=== PATIENT | male | born 1950 | race Caucasian/White ===

== ENCOUNTER 2017-03-18 12:40 | Outpatient (CLI) | payer MEDICARE, MEDICAID ==
[2017-03-18 17:36] LABS: EOSINOPHILS # (AUTO) 0.1 10^3/uL (0.0-0.7); HCT - HEMATOCRIT 46.1 % (42.0-52.0); HGB - HEMOGLOBIN 15.2 g/dL (14.0-18.0); LYMPHOCYTES # (AUTO) 1.4 10^3/uL (1.5-3.5); LYMPHOCYTES % (AUTO) 30.6 %; MEAN CORPUSCULAR HEMOGLOBIN 30.6 pg (27.0-31.0); MEAN CORPUSCULAR HGB CONC 32.8 g/dL (32.0-36.0); MEAN CORPUSCULAR VOLUME 93.3 fL (80.0-94.0); MONOCYTES # (AUTO) 0.4 10^3/uL (0.0-1.0); MONOCYTES % (AUTO) 9.8 %; NEUTROPHILS # (AUTO) 2.5 10^3/uL (1.5-6.6); NEUTROPHILS % (AUTO) 55.6 %; NUCLEATED RED BLOOD CELLS AUTO 0.1 /100WBC; RED BLOOD COUNT 4.95 10^6/uL (4.70-6.10); RED CELL DISTRIBUTION WIDTH 13.9 % (12.0-15.0); UNCORRECTED WHITE BLOOD COUNT 4.6 x10^3/uL; WHITE BLOOD COUNT 4.6 x10^3/uL (4.8-10.8)
[2017-03-18 20:23] LABS: ALBUMIN/GLOBULIN RATIO 1.5 (1.0-2.2); BILIRUBIN,TOTAL 0.3 mg/dL (0.2-1.0); BUN - BLOOD UREA NITROGEN 10 mg/dL (6-20); CALCIUM 8.6 mg/dL (8.5-10.3); CARBON DIOXIDE - CO2 25 mmol/L (21-32); CHLORIDE 106 mmol/L (101-111); CHOL/HDL RATIO 4.3 (<5.0); CHOLESTEROL 212 mg/dL; CREATININE 0.7 mg/dL (0.6-1.2); GFR - MDRD 113 (>89); GLUCOSE 98 mg/dL (70-100); HDL CHOLESTEROL 49 mg/dL; LDL/HDL RATIO 2.9 (<3.6); POTASSIUM 4.1 mmol/L (3.5-5.0); SODIUM 138 mmol/L (135-145); TOTAL PROTEIN 6.7 g/dL (6.7-8.2); TRIGLYCERIDES 107 mg/dL; VLDL CHOLESTEROL 21 mg/dL
[2017-03-19 09:02] LABS: TEST RESULT REPORT (())
[2017-03-22 22:01] LABS: HSV 1/2 IGM INDEX <0.90 INDEX (()); HSV 2 IGG INDEX <0.90 INDEX (())
== END 2017-03-18 12:41 | disposition home or self-care (01) ==
LOC: LAB.F 12:40
PROVIDERS: ATTEND Nurse Practitioner Family
DX: F32.9 Major depressive disorder, single episode, unspecified (principal)
CPT/HCPCS: 36415; 80050; 80061; 81599; 86592; 86694; 86695; 86696; 86803; G0475; 87389

== ENCOUNTER 2017-05-06 14:27 | Outpatient (CLI) | payer MEDICARE, MEDICAID | END 2017-05-06 14:28 | disposition home or self-care (01) | LOC: LAB.F 14:27 | PROVIDERS: ATTEND Nurse Practitioner Family | DX: Z12.5 Encounter for screening for malignant neoplasm of prostate (principal); F32.9 Major depressive disorder, single episode, unspecified; Z13.6 Encounter for screening for cardiovascular disorders | CPT/HCPCS: 36415; 87491; 87591; G0103; 84153 ==

== ENCOUNTER 2017-06-07 13:06 | Outpatient (CLI) | payer MEDICARE, MEDICAID ==
--- NOTE | 2017-06-07 18:23 | Ultrasound Report ---
ABDOMINAL ULTRASOUND: 06/07/2017 CLINICAL INDICATION: Palpable abnormality. TECHNIQUE: Real-time scanning was performed with retention representative static images obtained. FINDINGS: Ultrasound of the palpable abnormality identified by the patient in the right abdominal wa ll was performed. At this site, there is a 5.4 x 2.2 x 1.0 cm lipoma. No sonographically suspicious findings are identified. IMPRESSION: SIMPLE LIPOMA ACCOUNTING FOR THE PALPABLE ABNORMALITY. JOB #: [id number] EXT JOB #:
== END 2017-06-07 13:07 | disposition home or self-care (01) ==
LOC: DI 13:06
PROVIDERS: ATTEND Nurse Practitioner Family
DX: D17.1 Benign lipomatous neoplasm of skin and subcutaneous tissue of trunk (principal)
CPT/HCPCS: 76705

== ENCOUNTER 2017-12-05 14:17 | Observation (INO) | payer MEDICARE, MEDICAID ==
[2017-12-05 15:00] LABS: BASOPHILS # (AUTO) 0.1 10^3/uL (0.0-0.1); BASOPHILS % (AUTO) 1.5 %; EOSINOPHILS # (AUTO) 0.1 10^3/uL (0.0-0.7); EOSINOPHILS % (AUTO) 2.8 %; LYMPHOCYTES % (AUTO) 29.8 %; MEAN CORPUSCULAR HEMOGLOBIN 22.4 pg (27.0-31.0); MEAN CORPUSCULAR HGB CONC 30.3 g/dL (32.0-36.0); MEAN CORPUSCULAR VOLUME 73.9 fL (80.0-94.0); MEAN PLATELET VOLUME 7.3 fL (7.4-11.4); MONOCYTES # (AUTO) 0.4 10^3/uL (0.0-1.0); MONOCYTES % (AUTO) 12.7 %; NEUTROPHILS # (AUTO) 1.8 10^3/uL (1.5-6.6); NEUTROPHILS % (AUTO) 53.2 %; PLT - PLATELET COUNT 303 10^3/uL (130-450); RED BLOOD COUNT 2.95 10^6/uL (4.70-6.10); RED CELL DISTRIBUTION WIDTH 20.3 % (12.0-15.0); WHITE BLOOD COUNT 3.4 x10^3/uL (4.8-10.8)
[2017-12-05 15:07] LABS: HGB - HEMOGLOBIN 6.6 g/dL (14.0-18.0)
[2017-12-05 15:12] LABS: ALBUMIN/GLOBULIN RATIO 1.5 (1.0-2.2); BILIRUBIN,TOTAL 0.5 mg/dL (0.2-1.0); CALCIUM 8.7 mg/dL (8.5-10.3); CREATININE 0.8 mg/dL (0.6-1.2); TOTAL PROTEIN 6.7 g/dL (6.7-8.2)
[2017-12-05 15:23] LABS: PLATELET ESTIMATE, MANUAL NORMAL (130-450,000) (NORMAL); PLATELET MORPHOLOGY NORMAL APPEARANCE (NORMAL)
[2017-12-05] MEDS ORDERED: SODIUM CHLORIDE 0.9% 1,000 ML IV ONE (15:36)
--- NOTE | 2017-12-05 15:39 | ED Physician Documentation ---
History of Present Illness - Stated complaint Stated Complaint: R EYE VISION CHANGES - Chief complaint Chief Complaint: Cardiac - History obtained from History obtained from: Patient - History of Present Illness Timing: Yesterday Improved by: rest Worsened by: walking - Additonal information Additional information: Patient is a 67-year-old male who presents to the emergency department with vision loss in his right eye last night, this has since resolved. He also was seen last week at [facility] in [place] for rectal bleeding, found to be significantly anemic and recommended that he be admitted for blood transfusion, he declined this and left AGAINST MEDICAL ADVICE to go home. Tried treating it with vegetable shakes at home, but is still not feeling well. Feels very out of breath with walking. He had an episode of feeling like his heart was racing last week at the same time. This has not recurred. He is not on any medications for home. Last colonoscopy was 25 years ago. States has a long history of hemorrhoids and as noted, not bright red blood per rectum. Review of Systems Ten Systems: 10 systems reviewed and negative Constitutional: denies: Fever, Chills Eyes: denies: Photophobia Ears: denies: Ear pain Nose: denies: Rhinorrhea / runny nose, Congestion Cardiac: denies: Chest pain / pressure Respiratory: denies: Dyspnea, Cough GI: denies: Abdominal Pain, Nausea, Vomiting, Diarrhea : denies: Dysuria Skin: denies: Rash Musculoskeletal: denies: Neck pain, Back pain Neurologic: denies: Headache PD PAST MEDICAL HISTORY - Past Medical History Past Medical History: No - Past Surgical History Past Surgical History: No - Present Medications Home Medications: Ambulatory Orders Medication Instructions Recorded Confirmed No Known Home Medications [No 12/05/17 12/05/17 Known Home Medications] - Allergies Allergies/Adverse Reactions: Allergies Allergy/AdvReac Type Severity Reaction Status Date / Time No Known Drug Allergies Allergy Verified 12/05/17 14:28 - Social History Does the pt smoke?: No Does the pt have substance abuse?: No - Family History Family history: reports: Non contributory PD ED PE NORMAL - Vitals Vital signs reviewed: Yes - General General: Alert and oriented X 3, No acute distress, Well developed/nourished - HEENT HEENT: PERRL, EOMI, Ears normal, Moist mucous membranes, Pharynx benign, Other ( Normal funduscopic exam bilaterally) - Neck Neck: Supple, no meningeal sign - Cardiac Cardiac: RRR, Strong equal pulses - Respiratory Respiratory: No respiratory distress, Clear bilaterally - Abdomen Abdomen: Soft, Non tender, Non distended - Rectal Rectal: Pt declined - Back Back: No spinal TTP - Derm Derm: Warm and dry, No rash - Extremities Extremities: No edema - Neuro Neuro: Alert and oriented X 3, transportation broker 2-12 intact, No motor deficit, No sensory deficit, Normal speech - Psych Psych: Normal mood, Normal affect Results - Vitals Vitals: Vital Signs - 24 hr 12/05/17 14:22 Temperature 36.8 C Heart Rate 80 Respiratory 18 Rate Blood Pressure 116/59 L O2 Saturation 98 Oxygen O2 Source Room air - EKG (time done) 1528 Rate: Rate (enter#) (76) Rhythm: NSR [place]: Normal Intervals: RBBB - Labs Labs: Laboratory Tests 12/05/17 12/05/17 12/05/17 14:53 14:53 14:53 WBC 3.4 L RBC 2.95 L Hgb 6.6 L* Hct 21.8 L MCV 73.9 L MCH 22.4 L MCHC 30.3 L RDW 20.3 H Plt Count 303 MPV 7.3 L Neut # 1.8 Lymph # 1.0 L [place] # 0.4 Eos # 0.1 Baso # 0.1 Absolute Nucleated RBC 0.01 Nucleated RBC % 0.3 Platelet Estimate NORMAL (130-450,000) Platelet Morphology NORMAL APPEARANCE RBC Morph Micro Appear 3+ POIKILOCYTOSIS Sodium 135 Potassium 4.3 Chloride 104 Carbon Dioxide 23 Anion Gap 8.0 BUN 10 Creatinine 0.8 Estimated GFR (MDRD) 97 Glucose 107 H Calcium 8.7 Iron TIBC % Saturation Transferrin Ferritin Total Bilirubin 0.5 AST 16 ALT 11 Alkaline Phosphatase 44 Troponin I < 0.04 Total Protein 6.7 Albumin 4.0 Globulin 2.7 Albumin/Globulin Ratio 1.5 Lipase 15 L Vitamin B12 Folate Blood Type Blood Type Recheck Antibody Screen Crossmatch IS Only 12/05/17 12/05/17 12/05/17 14:53 14:53 14:53 WBC RBC Hgb Hct MCV MCH MCHC RDW Plt Count MPV Neut # Lymph # [place] # Eos # Baso # Absolute Nucleated RBC Nucleated RBC % Platelet Estimate Platelet Morphology RBC Morph Micro Appear Sodium Potassium Chloride Carbon Dioxide Anion Gap BUN Creatinine Estimated GFR (MDRD) Glucose Calcium Iron 7 L TIBC 591 H % Saturation 1 L Transferrin 422 H Ferritin 4.7 L Total Bilirubin AST ALT Alkaline Phosphatase Troponin I Total Protein Albumin Globulin Albumin/Globulin Ratio Lipase Vitamin B12 340 Folate 21.14 Blood Type Blood Type Recheck O POSITIVE Antibody Screen Crossmatch IS Only 12/05/17 12/05/17 15:56 15:56 WBC RBC Hgb Hct MCV MCH MCHC RDW Plt Count MPV Neut # Lymph # [place] # Eos # Baso # Absolute Nucleated RBC Nucleated RBC % Platelet Estimate Platelet Morphology RBC Morph Micro Appear Sodium Potassium Chloride Carbon Dioxide Anion Gap BUN Creatinine Estimated GFR (MDRD) Glucose Calcium Iron TIBC % Saturation Transferrin Ferritin Total Bilirubin AST ALT Alkaline Phosphatase Troponin I Total Protein Albumin Globulin Albumin/Globulin Ratio Lipase Vitamin B12 Folate Blood Type O POSITIVE Cancelled Blood Type Recheck Antibody Screen NEGATIVE Cancelled Crossmatch IS Only See Detail - Rads (name of study) head CT Radiology: Prelim report reviewed, EMP read contemporaneously, See rad report ( Normal examination for age. No acute intracranial process or demonstrated cause for the patient's symptoms. MRI of the brain and orbits without and with contrast may be useful for further assessment, as clinically indicated. ) PD MEDICAL DECISION MAKING - ED course Complexity details: reviewed results, re-evaluated patient, considered differential, d/w patient, d/w family, d/w retirement sales consultant (Dr. Frausto, Dr. Tavares.) ED course: Patient is a 67-year-old gentleman who presents to the emergency department multiple problems, the first appears to be GI bleeding, with bright red blood per rectum. This is a chronic issue for the patient. He has now become symptomatic from his anemia. Discussed the case with Dr. Tavares who will consult on the patient tomorrow. Patient is unsure if he wants a colonoscopy or not. He does accept a blood transfusion. The second issue appears to be a TIA, loss of vision to the right eye which is now resolved. No acute findings on head CT, but would likely benefit from MRI. May also need carotid Dopplers/ cardiac Echo. Will place the patient in observation with the hospitalist, discussed with Dr. Frausto who accepts. This document was made in part using voice recognition software. While efforts are made to proofread this document, sound alike and grammatical errors may occur. Departure - Departure Disposition: ED Place in Observation Clinical Impression: Symptomatic anemia TIA (transient ischemic attack) Qualifiers: Transient cerebral ischemia type: amaurosis fugax Qualified Code(s): G45.3 - Amaurosis fugax GI bleed Qualifiers: GI bleed type/associated pathology: unspecified gastrointestinal hemorrhage type Qualified Code(s): K92.2 - Gastrointestinal hemorrhage, unspecified Condition: Good Discharge Date/Time: 12/05/17 19:34 NIHSS - Time Time: 15:30 - Level of Consciousness Level of consciousness: (0) Alert, Keenly responsive LOC Questions: (0) Answers both Q's correct LOC Commands: (0) Performs both correctly - Gaze Best Gaze: (0) Normal - Visual Visual: (0) No loss - Facial Palsy Facial Palsy: (0) Normal, symmetrical movement - Motor Arms (both separate) Motor Arm (right): (0) No drift Motor Arm (left): (0) No drift - Motor Legs (both separate) Motor Leg (right): (0) No drift Motor Leg (left): (0) No drift - Limb Ataxia Limb Ataxia: (0) Absent - Sensory Sensory: (0) Normal - Best Language Best Language: (0) No aphasia - Dysarthria Dysarthria: (0) Normal - Extinction and Inattention (formally neg Extinction and inattention: (0) No abnormality - Total Score/Results Total Score/Result: 0
--- NOTE | 2017-12-05 16:27 | CT Preliminary Report ---
Exam: CT HEAD W/O IMPRESSION: Normal examination for age. No acute intracranial process are demonstrated cause for the patient's symptoms. MRI of the brain and orbits without and with contrast may be useful for further assessment, as clinic ally indicated. [facility] SITE ID: [id number]
--- NOTE | 2017-12-05 16:30 | CT Report ---
EXAM: CT HEAD WITHOUT CONTRAST EXAM DATE: 12/05/2017 04:10 PM. CLINICAL HISTORY: 67-year-old male with right eye vision loss beginning last night, worse today. COMPARISON: None. TECHNIQUE: Multiaxial CT images were obtained from the foramen magnum to the vertex. Reformats: Coron al. IV contrast: None. In accordance with CT protocol optimization, one or more of the following dose reduction techniques w ere utilized for this exam: automated exposure control, adjustment of mA and/or KV based on patient s ize, or use of iterative reconstructive technique. FINDINGS: Parenchyma: Generalized mild age-appropriate cerebral and cerebellar atrophy. No intraparenchymal hem orrhage. No evidence of mass, midline shift, or CT findings of infarction. Warren-white differentiation is distinct. Extraaxial Spaces: Normal for age. No subdural or epidural collections identified. Ventricles: Normal in size and position. Sinuses and Orbits: Paranasal sinuses unremarkable. Intraorbital global anterior calcifications, symm etrical in appearance. No soft tissue mass, foreign body, lytic or destructive process. Bones: No evidence of fracture or calvarial defect. Other: None. IMPRESSION: Normal examination for age. No acute intracranial process or demonstrated cause for the p atient's symptoms. MRI of the brain and orbits without and with contrast may be useful for further assessment, as clinic ally indicated. [facility] Referring Provider Line: [phone] SITE ID: [id number]
[2017-12-05] MEDS ORDERED: ONDANSETRON 4 MG/2 ML VIAL IVP PRN (17:50)
[2017-12-05] MEDS ORDERED: PROCHLORPERAZINE 10 MG/2 ML VIAL IVP PRN (17:50)
[2017-12-05] MEDS ORDERED: ACETAMINOPHEN 325 MG TABLET PO PRN (17:50)
[2017-12-05] MEDS ORDERED: SODIUM CHLORIDE FLUSH 0.9% 10 ML SYRINGE IVP PRN (17:50)
[2017-12-05] MEDS ORDERED: oxyCODONE 5 MG TABLET PO PRN (17:50)
[2017-12-05 18:59] LABS: % IRON SATURATION 1 % (20-50); IRON 7 ug/dL (45-182); TOTAL IRON BINDING CAPACITY 591 ug/dL (250-450); TRANSFERRIN 422 mg/dL (180-329)
[2017-12-05 19:04] LABS: FERRITIN 4.7 ng/mL (23.9-336.2)
[2017-12-05 19:07] LABS: FOLATE 21.14 ng/mL (5.90 - >24.8)
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
[2017-12-06] MEDS: SODIUM CHLORIDE FLUSH 0.9% 10 ML SYRINGE IVP SCH ×3 (01:00→17:22)
[2017-12-06] MEDS: PANTOPRAZOLE 40 MG TABLET PO SCH ×2 (06:30→17:22)
[2017-12-06] MEDS: POLYETHYLENE GLYCOL 3350 17 GM PACKET PO SCH (10:28)
[2017-12-06 12:06] LABS: BASOPHILS % (AUTO) 1.2 %; EOSINOPHILS # (AUTO) 0.1 10^3/uL (0.0-0.7); EOSINOPHILS % (AUTO) 3.4 %; HGB - HEMOGLOBIN 8.7 g/dL (14.0-18.0); LYMPHOCYTES % (AUTO) 34.2 %; MEAN CORPUSCULAR HEMOGLOBIN 24.6 pg (27.0-31.0); MEAN CORPUSCULAR VOLUME 76.6 fL (80.0-94.0); MEAN PLATELET VOLUME 7.4 fL (7.4-11.4); MONOCYTES # (AUTO) 0.4 10^3/uL (0.0-1.0); MONOCYTES % (AUTO) 14.5 %; NEUTROPHILS # (AUTO) 1.4 10^3/uL (1.5-6.6); NEUTROPHILS % (AUTO) 46.7 %; PLT - PLATELET COUNT 268 10^3/uL (130-450); RED BLOOD COUNT 3.55 10^6/uL (4.70-6.10); RED CELL DISTRIBUTION WIDTH 20.7 % (12.0-15.0); WHITE BLOOD COUNT 2.9 x10^3/uL (4.8-10.8)
--- NOTE | 2017-12-06 17:34 | Ultrasound Preliminary Report ---
Exam: US CAROTID DOPPLER COMPLETE IMPRESSION: 1. No hemodynamically significant stenoses. 2. Both vertebral arteries are antegrade in flow. Validated velocity measurements with angiographic measurements and velocity criteria are extrapolated from diameter data as defined by the Society of Radiologists in Ultrasound Consensus Conference Radi ology 2003; 229;340-346. [facility] SITE ID: [id number]
[2017-12-06] MEDS: FERROUS SULFATE 325 MG TABLET PO SCH (17:56)
--- NOTE | 2017-12-06 17:59 | Ultrasound Report ---
EXAM: CAROTID DOPPLER ULTRASOUND EXAM DATE: 12/06/2017 05:00 PM. CLINICAL HISTORY: TIA versus CVA. Right eye visual deficit. COMPARISON: None. TECHNIQUE: Real-time sonographic vascular imaging was performed by the train dispatcher through the caroti d arterial system with a linear transducer utilizing color-flow, Doppler flow and spectral analysis. Multiple site safety representative static images were saved for review. FINDINGS: No hemodynamically significant stenoses are noted. Both vertebral arteries are antegrade in flow. Right: RCCA Prox: PSV 109 cm/sec. RCCA Dist: PSV 77 cm/sec, EDV 17 cm/sec. RECA: PSV 118 cm/sec. R Bulb: PSV 31 cm/sec, EDV 11 cm/sec, ICA/CCA ratio 0.40. ANDREW Prox: PSV 66 cm/sec, EDV 26 cm/sec, ICA/CCA ratio 0.86. ANDREW Mid: PSV 81 cm/sec, EDV 30 cm/sec, ICA/CCA ratio 1.05. ANDREW Dist: PSV 59 cm/sec, EDV 20 cm/sec, ICA/CCA ratio 0.77. RVA: PSV 57 cm/sec. RVA flow direction: Antegrade. Left: LCCA Prox: PSV 107 cm/sec. LCCA Dist: PSV 90 cm/sec, EDV 27 cm/sec. LECA: PSV 107 cm/sec. L Bulb: PSV 67 cm/sec, EDV 19 cm/sec, ICA/CCA ratio 0.74. LICA Prox: PSV 78 cm/sec, EDV 29 cm/sec, ICA/CCA ratio 0.87. LICA Mid: PSV 56 cm/sec, EDV 27 cm/sec, ICA/CCA ratio 0.62. LICA Dist: PSV 85 cm/sec, EDV 29 cm/sec, ICA/CCA ratio 0.94. LVA: PSV 32 cm/sec. LVA flow direction: Antegrade. Other: None. IMPRESSION: 1. No hemodynamically significant stenoses. 2. Both vertebral arteries are antegrade in flow. Validated velocity measurements with angiographic measurements and velocity criteria are extrapolated from diameter data as defined by the Society of Radiologists in Ultrasound Consensus Conference Radi ology 2003; 229;340-346. [facility] Referring Provider Line: [phone] SITE ID: [id number]
--- NOTE | 2017-12-06 18:09 | PROVIDER PROGRESS NOTE ---
Assessment/Plan - Problem List (1) AF (amaurosis fugax) Assessment/Plan: Pt will not agree to have a repeat CT of head "because of risk of cancer with radiation exposure". 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 I spent 20 min discussing recommended testing and risks and benefits of these tests. Pt feels that "the risks of cancer from radiation exposure outway the benefits" of the results. He also stated that even if there is a stroke found, he would not agree to aggressive management. Will order Echo and carotid Doppler to evaluate for a source of embolism. ASA would be started but not during active GI bleeding and source and severity is not known, therefore no ASA at this time. (2) Symptomatic anemia Assessment/Plan: Pt agrees to have a repeat CBC to assess where his Hgb stephanie to after 2U PRBC blood transfusion, but he refused all other am blood tests. His Iron studies show marked iron deficiency. This was discussed with him. He does agree to take a prescription Iron replacement. (3) GI bleed Qualifiers: GI bleed type/associated pathology: unspecified gastrointestinal hemorrhage type Qualified Code(s): K92.2 - Gastrointestinal hemorrhage, unspecified Assessment/Plan: Pt agrees to speak to surgeon (who was requested to do consult for a colonoscopy ). Pt does not agree to have a bowel prep for a colonoscopy at this time, however. - Current Meds Current Meds: Current Medications Generic Name Dose Route Start Last Admin Trade Name Freq PRN Reason Stop Dose Admin Acetaminophen 650 mg 12/05/17 17:50 12/05/17 22:14 Tylenol PO 650 mg Q4HR PRN Administration Pain 1 to 4 Ferrous Sulfate 325 mg 12/06/17 18:00 12/06/17 17:56 Feosol PO 325 mg BIDWM DAVON Administration Pantoprazole Sodium 40 mg 12/06/17 07:00 12/06/17 17:22 Protonix PO Not Given BIDAC DAVON Polyethylene Glycol 17 gm 12/06/17 09:00 12/06/17 10:28 Miralax PO Not Given DAILY DAVON Sodium Chloride 10 ml 12/06/17 01:00 12/06/17 17:22 Normal Saline Flush 0.9% IVP Not Given 0100,0900,1700 DAVON - Lab Result Fish Bone Diagrams: 12/06/17 11:56 12/05/17 14:53 - Additional Planning My Orders: My Active Orders 12/06/17 Consult [General Surgery Consult] [CONS] Routine 12/06/17 11:55 Echo Complete w/Bubble Study [ECHO] Routine 12/06/17 18:00 Ferrous Sulfate [Feosol] 325 mg PO BIDWM Subjective - Subjective Patient Reports: Other (Still has poor vision in R eye) Nursing Reports: Other (Pt refused am blood tests while fasasting, later agreed to have blood tests but had eaten) Objective Vital Signs: Vital Signs - 24 hr 12/05/17 12/05/17 12/05/17 19:29 19:38 19:59 Temperature 36.7 C 36.9 C 36.8 C Heart Rate 84 76 Heart Rate [ 77 Brachial] Respiratory 16 16 16 Rate Blood Pressure 114/66 104/66 Blood Pressure 114/66 [Right Brachial artery] O2 Saturation 98 12/05/17 12/05/17 12/05/17 20:56 22:21 22:43 Temperature 37.1 C 36.3 C L 36.9 C Heart Rate 79 75 Heart Rate [ 78 Brachial] Respiratory 18 16 16 Rate Blood Pressure 113/73 116/51 L Blood Pressure 100/58 L [Right Brachial artery] O2 Saturation 98 12/05/17 12/06/17 12/06/17 22:58 00:12 02:00 Temperature 37.0 C 36.7 C Heart Rate 80 92 Heart Rate [ 70 Brachial] Respiratory 16 16 16 Rate Blood Pressure 105/80 115/77 Blood Pressure 113/69 [Right Brachial artery] O2 Saturation 97 12/06/17 12/06/17 12/06/17 05:11 07:46 11:34 Temperature 36.6 C 36.8 C 36.4 C L Heart Rate Heart Rate [ 69 70 73 Brachial] Respiratory 16 18 17 Rate Blood Pressure Blood Pressure 115/77 117/71 104/69 [Right Brachial artery] O2 Saturation 97 98 97 12/06/17 16:00 Temperature 37.1 C Heart Rate Heart Rate [ 72 Brachial] Respiratory 18 Rate Blood Pressure Blood Pressure 101/60 [Right Brachial artery] O2 Saturation 97 Oxygen O2 Source Room air I&O (Last 24 Hrs): Intake and Output Totals x24h 12/04/17 12/05/17 12/06/17 23:59 23:59 23:59 Intake Total 550 1690 Output Total 175 425 Balance 375 1265 General: Alert, Oriented x3 HEENT: Atraumatic, Mucous membr. moist/pink Neck: Supple, No JVD Neuro: Non Focal, Other (R ring finger adducted) Cardiovascular: Regular rate, No murmurs Respiratory: Breath sounds nml Abdomen: Soft Extremities: No edema - Results Results: Laboratory Results WBC 2.9 x10^3/uL (4.8-10.8) L 12/06/17 11:56 RBC 3.55 10^6/uL (4.70-6.10) L 12/06/17 11:56 Hgb 8.7 g/dL (14.0-18.0) L 12/06/17 11:56 Hct 27.2 % (42.0-52.0) L 12/06/17 11:56 MCV 76.6 fL (80.0-94.0) L 12/06/17 11:56 MCH 24.6 pg (27.0-31.0) L 12/06/17 11:56 MCHC 32.0 g/dL (32.0-36.0) 12/06/17 11:56 RDW 20.7 % (12.0-15.0) H 12/06/17 11:56 Plt Count 268 10^3/uL (130-450) 12/06/17 11:56 MPV 7.4 fL (7.4-11.4) 12/06/17 11:56 Neut # 1.4 10^3/uL (1.5-6.6) L 12/06/17 11:56 Lymph # 1.0 10^3/uL (1.5-3.5) L 12/06/17 11:56 [place] # 0.4 10^3/uL (0.0-1.0) 12/06/17 11:56 Eos # 0.1 10^3/uL (0.0-0.7) 12/06/17 11:56 Baso # 0.0 10^3/uL (0.0-0.1) 12/06/17 11:56 Absolute Nucleated RBC 0.01 x10^3/uL 12/06/17 11:56 Nucleated RBC % 0.5 /100WBC 12/06/17 11:56 Manual Slide Review Indicated 12/06/17 11:56 Platelet Estimate NORMAL (130-450,000) (NORMAL) 12/05/17 14:53 Platelet Morphology NORMAL APPEARANCE (NORMAL) 12/05/17 14:53 RBC Morph Micro Appear 3+ ANISOCYTOSIS (NORMAL) 3+ POIKILOCYTOSIS (NORMAL) 12/05/17 14:53 RBC Morph Micro Appear 3+ ANISOCYTOSIS (NORMAL) 1+ MICROCYTOSIS (NORMAL) 12/06/17 11:56 RBC Morph Micro Appear 3+ ANISOCYTOSIS (NORMAL) 1+ MICROCYTOSIS (NORMAL) 12/06/17 11:56 Sodium 135 mmol/L (135-145) 12/05/17 14:53 Potassium 4.3 mmol/L (3.5-5.0) 12/05/17 14:53 Chloride 104 mmol/L (101-111) 12/05/17 14:53 Carbon Dioxide 23 mmol/L (21-32) 12/05/17 14:53 Anion Gap 8.0 (6-13) 12/05/17 14:53 BUN 10 mg/dL (6-20) 12/05/17 14:53 Creatinine 0.8 mg/dL (0.6-1.2) 12/05/17 14:53 Estimated GFR (MDRD) 97 (>89) 12/05/17 14:53 Glucose 107 mg/dL (70-100) H 12/05/17 14:53 Calcium 8.7 mg/dL (8.5-10.3) 12/05/17 14:53 Iron 7 ug/dL (45-182) L 12/05/17 14:53 TIBC 591 ug/dL (250-450) H 12/05/17 14:53 % Saturation 1 % (20-50) L 12/05/17 14:53 Transferrin 422 mg/dL (180-329) H 12/05/17 14:53 Ferritin 4.7 ng/mL (23.9-336.2) L 12/05/17 14:53 Total Bilirubin 0.5 mg/dL (0.2-1.0) 12/05/17 14:53 AST 16 IU/L (10-42) 12/05/17 14:53 ALT 11 IU/L (10-60) 12/05/17 14:53 Alkaline Phosphatase 44 IU/L (42-121) 12/05/17 14:53 Troponin I < 0.04 ng/mL (<0.49) 12/05/17 14:53 Total Protein 6.7 g/dL (6.7-8.2) 12/05/17 14:53 Albumin 4.0 g/dL (3.2-5.5) 12/05/17 14:53 Globulin 2.7 g/dL (2.1-4.2) 12/05/17 14:53 Albumin/Globulin Ratio 1.5 (1.0-2.2) 12/05/17 14:53 Lipase 15 U/L (22-51) L 12/05/17 14:53 Vitamin B12 340 pg/mL (180-914) 12/05/17 14:53 Folate 21.14 ng/mL (5.90 - >24.8) 12/05/17 14:53 Blood Type O POSITIVE 12/05/17 15:56 Blood Type Recheck O POSITIVE 12/05/17 14:53 Antibody Screen NEGATIVE 12/05/17 15:56 Crossmatch IS Only See Detail 12/05/17 15:56
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
[2017-12-07] MEDS: SODIUM CHLORIDE FLUSH 0.9% 10 ML SYRINGE IVP SCH ×2 (00:35→09:33)
[2017-12-07] MEDS: PANTOPRAZOLE 40 MG TABLET PO SCH (06:13)
[2017-12-07 08:10] VITALS: BP 91/51
--- NOTE | 2017-12-07 09:12 | Discharge Plan ---
Discharge Plan Disposition: Home, Self Care Condition: Stable Prescriptions: Ferrous Sulfate 325 mg PO BID #60 tablet Diet: Regular Activity Restrictions: Activity as Tolerated Shower Restrictions: No Driving Restrictions: Yes (See your doctor for clearance to drive) Instruction Topics: TIA, ED Anemia Iron Deficiency Additional Instructions or Follow Up instructions: See your doctor for further testing and recommendations regarding your anemia. Start taking the Iron replacement pills. See your doctor for referral to a Neurologist and Director Property for evaluation of your eyesight. If you drive, you must be cleared by a doctor to resume driving, due to the eyesight problem. No Smoking: If you smoke, Please STOP! Call for help. Follow-up with: Valentine Morales ARNP [Primary Care Provider] -
[2017-12-07] MEDS: POLYETHYLENE GLYCOL 3350 17 GM PACKET PO SCH (09:33)
[2017-12-07] MEDS: FERROUS SULFATE 325 MG TABLET PO SCH (09:33)
--- NOTE | 2017-12-08 09:19 | DISCHARGE SUMMARY ---
Physician: Aggie Ramos MD DATE OF ADMISSION: 12/05/2017 DATE OF DISCHARGE: 12/07/2017 HISTORY OF PRESENT ILLNESS: This is a 67-year-old white male with a negative past medical history, he takes no prescription medications. He describes being suspicious of "current [place] medical care" and states he would rather treat his conditions with foods and supplements. The patient noticed bleeding from his rectum and went to a different hospital approximately 5 days ago when he was dizzy and had shortness of breath and palpitations and was found to have a hemoglobin of 5.9 and was advised he needed a blood transfusion. The patient refused the blood transfusion and signed out against medical advice. He decided to drink Smoothies and lots of green vegetables, which he did over the next 5 days. He presented to our emergency room with a change in vision of the right eye, occurring the day previously, and he was admitted with lightheadedness, dyspnea, fatigue, right eye sight changes and again found to be severely anemic with a hemoglobin of 6.6. DISCHARGE DIAGNOSES 1. Right-sided amaurosis fugax versus stroke. The patient underwent a head CT at the time of admission and this showed a normal exam for ahis ge with "no intracranial process to cause these symptoms". The recommendation was to have a brain MRI subsequently and also to look for sources of embolus by Echo and carotid Doppler. The patient and I had an extensive discussion regarding risks of radiation with CT scans and other imaging tests and risks with an MRI scan and he refused to undergo further brain imaging. Patient did have Doppler studies and the carotid Doppler showed no significant stenoses and the Echo showed a normal LVEF, no intracardiac clot and no intracardiac shunt. His eye symptoms were unchanged throughout this entire stay and he was advised to have evaluation with a Neurologist and an [employer] Account Assistant following discharge, to be arranged by his PCP. 2. Blood loss anemia. The patient reported no further bright red blood or melena while here. He had a consultation with general surgery for colonoscopy and refused a bowel prep and refused colonoscopy. There was once again a long discussion with him and the testing consultant regarding his being in disagreement with current medical recommendations and practices and he also stated that even if significant results were found he would have no intervention done or undergo any surgery. He, therefore, did not have an EGD or colonoscopy. He did agree to take prescription iron replacements and was discharged with iron sulfate 325 mg p.o. b.i.d. for a month and advised to see his PCP in followup. 3. Noncompliance and refused services. The patient refused morning blood draws , refused repeat CBC tests, refused any further blood transfusions even if needed, refused colonoscopy and EGD, refused brain MRI despite being told that there would be benefits that outweighed the risks of each of these tests. Further management for his symptoms is advised as an outpatient. ALLERGIES: NONE. MEDICATIONS AT THE TIME OF DISCHARGE: Iron sulfate 325 mg p.o. b.i.d. for 1 month, no refills were given. CONDITION AT DISCHARGE: Stable. PHYSICAL EXAMINATION at discharge: VITAL SIGNS: Blood pressure 91/51, heart rate 67 in sinus rhythm, afebrile, room air saturation 97%. HEENT: Pallor, but moist oral mucosa. NECK: No JVD or carotid bruits. CHEST: Clear. HEART: Sounds are normal. No audible murmur. ABDOMEN: Soft, nontender, normal bowel sounds. EXTREMITIES: Without clubbing, cyanosis or edema. The right ring finger is in contracture. NEUROLOGIC: Grossly normal. CODE STATUS: FULL CODE. FOLLOWUP: With his PCP, also recommended are Ophthalmology evaluation, Neurology consultation, and Gastroenterology for endoscopy. TIME REQUIRED TO COMPLETE THIS ENTIRE DISCHARGE: 45 minutes. cc: J CARLOS Lopez TD: 12/07/2017 18:50 [email or web address]
== END 2017-12-07 11:25 | disposition home or self-care (01) ==
LOC: ED 14:17 → OBS 17:50
PROVIDERS: ADMIT Internal Medicine; ATTEND Internal Medicine
DX: H54.61 Unqualified visual loss, right eye, normal vision left eye (principal); D50.0 Iron deficiency anemia secondary to blood loss (chronic); K64.9 Unspecified hemorrhoids; K92.1 Melena; Z91.19 Patient's noncompliance with other medical treatment and regimen; Z59.0 Homelessness; Z87.81 Personal history of (healed) traumatic fracture; Z83.79 Family history of other diseases of the digestive system
CPT/HCPCS: 36415; 36430; 70450; 80053; 82607; 82728; 82746; 83540; 83690; 84466; 84484; 85025; 86850; 86900; 86901; 86920; 93005; 93306; 93880; 96360; 96361; 99283; 99285; A9270; G0378; P9016; 99284

== ENCOUNTER 2019-08-23 14:14 | Emergency (ER) | payer MEDICARE, MEDICAID ==
[2019-08-23 14:26] VITALS: BP 124/83
--- NOTE | 2019-08-23 15:20 | ED Physician Documentation ---
History of Present Illness - Stated complaint Stated Complaint: HILL/NOT EATING - Chief complaint Chief Complaint: General - History obtained from History obtained from: Patient (This is a 68-year-old gentleman who lives in his tent in a barn. 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 He was sick for 2 months and then got better. 5 days ago he was emptying a vacuum chicken and fish cleaner bag outside and was exposed to some of the dust. That night developed sinus congestion and drainage which got better and then got worse again yesterday while stacking wood which was covered with black mold. No fevers. He states he really has no past medical history, but then admits for some reason he needed a transfusion a year and a half ago after an episode of heart racing. He really never followed up after that.) Review of Systems Constitutional: reports: Fatigue. 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 : Frequency HEENT: Other Psych: None Musculoskeletal: Chronic back pain Derm: None - Past Surgical History Past Surgical History: No - Present Medications Home Medications: Ambulatory Orders Medication Instructions Recorded Confirmed Ferrous Sulfate 325 mg PO BID #60 tablet 12/07/17 Mometasone Furoate [Nasonex] 1 spray NS BID #1 spray.pump 08/23/19 - Allergies Allergies/Adverse Reactions: Allergies Allergy/AdvReac Type Severity Reaction Status Date / Time No Known Drug Allergies Allergy Verified 08/23/19 14:26 - Social History Does the pt smoke?: No Smoking Status: Never smoker Does the pt have substance abuse?: No - POLST Patient has POLST: No POLST Status: Full Code PD ED PE NORMAL - Vitals Vital signs reviewed: Yes - General General: Alert and oriented X 3, No acute distress - HEENT HEENT: Other (Swollen nasal mucosa left worse than right with mild left maxillary sinus tenderness. TMs are normal.) - Neck Neck: Supple, no meningeal sign, No bony TTP - Cardiac Cardiac: RRR, No murmur - Respiratory Respiratory: No respiratory distress, Clear bilaterally - Abdomen Abdomen: Non tender - Derm Derm: No rash - Neuro Neuro: Alert and oriented X 3, Normal speech - Psych Psych: Other (Somewhat odd affect) Results - Vitals Vitals: Vital Signs - 24 hr 08/23/19 08/23/19 14:20 16:33 Temperature 36.5 C Heart Rate 77 74 Respiratory 16 14 Rate Blood Pressure 124/83 H 124/83 H O2 Saturation 98 99 Oxygen O2 Source Room air - Labs Labs: Laboratory Tests 08/23/19 08/23/19 15:48 15:48 WBC 4.8 RBC 5.32 Hgb 14.9 Hct 46.9 MCV 88.2 MCH 28.0 MCHC 31.8 L RDW 14.8 Plt Count 224 MPV 10.7 Neut # (Auto) 2.6 Lymph # (Auto) 1.4 L Candler # (Auto) 0.6 Eos # (Auto) 0.2 Baso # (Auto) 0.0 Absolute Nucleated RBC 0.00 Nucleated RBC % 0.0 Sodium 138 Potassium 3.9 Chloride 102 Carbon Dioxide 24 Anion Gap 12.0 BUN 17 Creatinine 0.8 Estimated GFR (MDRD) 96 Glucose 99 Calcium 8.9 Total Bilirubin 1.1 H AST 22 ALT 20 Alkaline Phosphatase 62 Total Protein 7.7 Albumin 4.2 Globulin 3.5 Albumin/Globulin Ratio 1.2 Lipase 82 H PD MEDICAL DECISION MAKING - ED course ED course: 68-year-old gentleman presents with symptoms that are most closely consistent with sinusitis. He refused antibiotics. He is very much focused on the idea of mold and we talked about that at length. He became very pushy about asking for a urine mold test. He did not seem to have much understanding of my description of why that test was not medically necessary especially in the emergency department. Primary care follow-up for that was advised. Departure - Departure Disposition: 01 Home, Self Care Clinical Impression: Sinusitis Qualifiers: Sinusitis location: maxillary Chronicity: acute Recurrence: non-recurrent Qualified Code(s): J01.00 - Acute maxillary sinusitis, unspecified Condition: Good Record reviewed to determine appropriate education?: Yes Instructions: ED Sinusitis No Abx Prescriptions: Mometasone Furoate [Nasonex] 1 spray NS BID #1 spray.pump Comments: Return for new or worsening symptoms. Follow-up with your doctor, you can discuss urine fungal testing with them, we do not have access to that test in the emergency department. Your blood work all looks fine. Discharge Date/Time: 08/23/19 16:34
[2019-08-23 16:02] LABS: BASOPHILS % (AUTO) 0.6 %; EOSINOPHILS # (AUTO) 0.2 10^3/uL (0.0-0.7); EOSINOPHILS % (AUTO) 3.4 %; HGB - HEMOGLOBIN 14.9 g/dL (14.0-18.0); LYMPHOCYTES # (AUTO) 1.4 10^3/uL (1.5-3.5); LYMPHOCYTES % (AUTO) 28.4 %; MEAN CORPUSCULAR HGB CONC 31.8 g/dL (32.0-36.0); MEAN CORPUSCULAR VOLUME 88.2 fL (80.0-94.0); MEAN PLATELET VOLUME 10.7 fL (7.4-11.4); MONOCYTES # (AUTO) 0.6 10^3/uL (0.0-1.0); MONOCYTES % (AUTO) 12.8 %; NEUTROPHILS # (AUTO) 2.6 10^3/uL (1.5-6.6); NEUTROPHILS % (AUTO) 54.6 %; PLT - PLATELET COUNT 224 10^3/uL (130-450); RED BLOOD COUNT 5.32 10^6/uL (4.70-6.10); RED CELL DISTRIBUTION WIDTH 14.8 % (12.0-15.0); WHITE BLOOD COUNT 4.8 x10^3/uL (4.8-10.8)
[2019-08-23 16:15] LABS: ALBUMIN 4.2 g/dL (3.2-5.5); ALBUMIN/GLOBULIN RATIO 1.2 (1.0-2.2); BILIRUBIN,TOTAL 1.1 mg/dL (0.2-1.0); CALCIUM 8.9 mg/dL (8.5-10.3); CREATININE 0.8 mg/dL (0.6-1.2); TOTAL PROTEIN 7.7 g/dL (6.7-8.2)
== END 2019-08-23 16:34 | disposition home or self-care (01) ==
LOC: ED 14:14
DX: J01.00 Acute maxillary sinusitis, unspecified (principal)
CPT/HCPCS: 36415; 80053; 83690; 85025; 99283; 99284

== ENCOUNTER 2020-02-07 08:00 | Outpatient (CLI) | payer MEDICARE, MEDICAID | END 2020-02-07 23:59 | disposition home or self-care (01) | LOC: COV 08:00 | PROVIDERS: ATTEND Family Medicine | DX: R50.9 Fever, unspecified (principal); R05 Cough; R06.02 Shortness of breath; M79.10 Myalgia, unspecified site; Z20.828 Contact with and (suspected) exposure to other viral communicable diseases | CPT/HCPCS: 81599 ==

== ENCOUNTER 2021-02-12 08:00 | Outpatient (CLI) | payer MEDICARE, MEDICAID ==
[2021-02-12 19:52] LABS: BASOPHILS % (AUTO) 0.7 %; EOSINOPHILS # (AUTO) 0.1 10^3/uL (0.0-0.7); HCT - HEMATOCRIT 32.7 % (42.0-52.0); HGB - HEMOGLOBIN 9.9 g/dL (14.0-18.0); LYMPHOCYTES # (AUTO) 1.2 10^3/uL (1.5-3.5); LYMPHOCYTES % (AUTO) 26.5 %; MEAN CORPUSCULAR HEMOGLOBIN 24.8 pg (27.0-31.0); MEAN CORPUSCULAR HGB CONC 30.3 g/dL (32.0-36.0); MEAN PLATELET VOLUME 10.2 fL (7.4-11.4); MONOCYTES # (AUTO) 0.5 10^3/uL (0.0-1.0); MONOCYTES % (AUTO) 10.8 %; NEUTROPHILS # (AUTO) 2.7 10^3/uL (1.5-6.6); NEUTROPHILS % (AUTO) 59.6 %; PLT - PLATELET COUNT 334 10^3/uL (130-450); RED BLOOD COUNT 3.99 10^6/uL (4.70-6.10); RED CELL DISTRIBUTION WIDTH 14.9 % (12.0-15.0); WHITE BLOOD COUNT 4.5 x10^3/uL (4.8-10.8)
[2021-02-12 20:13] LABS: ALBUMIN 3.9 g/dL (3.2-5.5); ALBUMIN/GLOBULIN RATIO 1.3 (1.0-2.2); BILIRUBIN,TOTAL 0.5 mg/dL (0.2-1.0); CALCIUM 8.4 mg/dL (8.5-10.3); CREATININE 0.9 mg/dL (0.6-1.2); TOTAL PROTEIN 6.9 g/dL (6.7-8.2)
[2021-02-12 20:31] LABS: THYROID STIMULATING HORMONE 1.55 uIU/mL (0.34-5.60)
== END 2021-02-12 23:59 | disposition home or self-care (01) ==
LOC: LAB.S 08:00
PROVIDERS: ATTEND Emergency Medicine
DX: R14.0 Abdominal distension (gaseous) (principal); R00.2 Palpitations; R19.7 Diarrhea, unspecified
CPT/HCPCS: 36415; 80053; 81001; 84443; 85025; 87086

== ENCOUNTER 2021-02-13 08:00 | Outpatient (CLI) | payer MEDICARE, MEDICAID | END 2021-02-13 23:59 | disposition home or self-care (01) | LOC: LAB.S 08:00 | PROVIDERS: ATTEND Emergency Medicine | DX: R14.0 Abdominal distension (gaseous) (principal) | CPT/HCPCS: 81599; 87045; 87046; 87177; 87209; 87427 ==

== ENCOUNTER 2024-01-15 21:10 | Emergency (ER) | payer MEDICARE, MEDICAID ==
[2024-01-15 21:20] VITALS: O2SAT 98
--- NOTE | 2024-01-15 21:54 | ED Physician Documentation ---
History of Present Illness - Stated complaint Stated Complaint: COUGH - Chief complaint Chief Complaint: Resp - Additonal information Additional information: Patient 73-year-old male presenting the emergency department chief complaint cough. Reports productive cough ongoing x 3 to 4 days. Cough began shortly after cleaning out his barn wound which he states he was exposed to multiple particulates including rat feces. Denies any fever, hemoptysis, body ache, chills, shortness of breath, chest pain, abdominal pain, nausea, vomiting, diarrhea, constipation, new rash. Comes to the emergency department because he was instructed to by [facility]. 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 States does not have insurance or a primary care doctor with whom he follows. Review of Systems Constitutional: denies: Fever Eyes: denies: Loss of vision Ears: denies: Loss of hearing Nose: denies: Rhinorrhea / runny nose Throat: denies: Dental pain / toothache Cardiac: denies: Chest pain / pressure Respiratory: reports: Cough. 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 : Frequency HEENT: Other Psych: None Musculoskeletal: Chronic back pain Derm: None - Past Surgical History Past Surgical History: No - Present Medications Home Medications: Ambulatory Orders Medication Instructions Recorded Confirmed Ferrous Sulfate 325 mg PO BID #60 tablet 12/07/17 Mometasone Furoate [Nasonex] 1 spray NS BID #1 spray.pump 08/23/19 - Allergies Allergies/Adverse Reactions: Allergies Allergy/AdvReac Type Severity Reaction Status Date / Time No Known Drug Allergies Allergy Verified 01/15/24 21:15 - Social History Does the pt smoke?: No Smoking Status: Never smoker Does the pt have substance abuse?: No - Immunizations Immunizations are current?: No - POLST Patient has POLST: No POLST Status: Full Code PD ED PE NORMAL - General General: Alert and oriented X 3, No acute distress, Well developed/nourished - HEENT HEENT: Atraumatic, PERRL, EOMI - Neck Neck: Supple, no meningeal sign, No bony TTP, No adenopathy, No JVD - Cardiac Cardiac: RRR, No murmur - Respiratory Respiratory: No respiratory distress - Abdomen Abdomen: Normal bowel sounds - Rectal Rectal: Deferred - Back Back: No CVA TTP - Derm Derm: Normal color Results - Vitals Vitals: Vital Signs - 24 hr 01/15/24 21:15 Temperature 36.6 C Heart Rate 80 Respiratory 16 Rate O2 Saturation 98 Oxygen O2 Source Room air PD Medical Decision Making - ED course Complexity details: d/w patient ED course: Patient 73-year-old male presenting the emergency department chief complaint productive cough. Afebrile, he medically stable on arrival to the emergency department. Patient comes in with productive cough-3-4 days after cleaning out his barn. Earlier this evening contacted [facility] to inquire about a nurse hotline to ask questions about his cough. Does not have a primary care doctor. Reports that he became and bridled in an argument with the rolled oats mill operator about the use of emergency services. States that he was informed that he needed to seek medical care they would send a development officer rig to his address. Offered evaluation here in the emergency department including but not limited to chest x-ray, lab work, viral screening which she has declined. He states he does not wish to take any "poison" which he defines as any medications including [id number] remedies. Does not wish for x-rays or radiation exposure. Does not demonstrate signs of psychosis, denies suicidal or homicidal ideation, demonstrates decisional capacity. Demonstrates understanding of potential and delayed diagnosis without formal testing here in the emergency department and requests discharge with instructions on use for Nonmedication strategies for management of cough. Encouraged to establish himself with primary care return to the emergency department for new or worsening symptoms. Departure - Departure Disposition: 01 Home, Self Care Clinical Impression: Cough Qualifiers: Cough type: unspecified Qualified Code(s): R05.9 - Cough, unspecified Instructions: ED Viral Syndrome Comments: Thank you for allowing us to care for you today [facility]. Today in the emergency department you were offered an evaluation for any possible dangerous or life-threatening medical emergency. The emergency department is always available for the evaluation of medical emergency. You are offered testing in the emergency department including viral screening, chest x-ray, lab work if appropriate for evaluation of your productive cough which you have declined. Because of this I cannot tell you definitively that there is no dangerous or life-threatening cause for your symptoms. As we discussed there are many nonmedication strategies people use to help with cough including humidified air, regular small sips of warm liquids, salt water gargles, as well as spoonfuls of viscous honey. I would like you to establish yourself with a primary care doctor as it is important to have access to adequate primary care in order to ensure overall health and wellbeing. Attached is a list of local area primary care physicians with whom you can follow. If you have new or worsening symptoms you are always welcome to return to the emergency department for reevaluation.
== END 2024-01-15 21:59 | disposition home or self-care (01) ==
LOC: ED 21:10
DX: R05.9 Cough, unspecified (principal)
CPT/HCPCS: 99281; 99283